=== PATIENT | male | born 1995 | race Caucasian/White ===

== ENCOUNTER 2019-05-04 15:12 | Emergency (ER) | payer MEDICAID ==
[~2019-05-04] VITALS: Ht 185.4 cm; Wt 100.3 kg
--- NOTE | 2019-05-04 16:35 | NUR ---
Discussed pt case with Dr. Vilchis and pt to be evaluated. Pt signed release of information for evaluation from [employer] [facility].
--- NOTE | 2019-05-04 18:30 | NUR ---
Assumed care of pt., Dr. Vilchis here to talk with pt. It is decided that he will be placed on a hold for DTS. Pt. is informed, and notified that he will need to change into green scrubs at this time, he is calm and cooperative, rr even and unlabored. Belongings will be inventoried.
--- NOTE | 2019-05-04 20:30 | NUR ---
Luisana rabago in [facility] - 05/04/19 at 2336 by PIERRE Urine results back and pt. packet faxed to [facility].
--- NOTE | 2019-05-04 20:30 | NUR ---
Nursing Note: Pt. continues to present as calm and cooperative, he reports S/I at this time without a plan. He states that a couple of weeks ago, he did have S/I with a plan to overdose on a sleeping aide, but denies this now. Pt. denies any past suicide attempts. He reports that he is currently in a drug and alcohol program at [facility], however relapsed and smoked Heroin r/t "The struggles I've been going through." He reports that he is able to contract for safety at this time and would like to return to the program at the [facility]. Pt. reports that he does not currently take any medications.
[2019-05-04 21:07] LABS: ALANINE AMINOTRANSFERASE 23 U/L (12-78); ALBUMIN 3.3 G/DL (3.4-5.0); ALBUMIN/GLOBULIN RATIO 1.1 (1.1-1.5); ALKALINE PHOSPHATASE 51 IU/L (46-116); ANION GAP 1 (8-16); ASPARTATE AMINO TRANSFERASE 15 U/L (10-37); BILIRUBIN,TOTAL 0.9 MG/DL (0.1-1.0); BLOOD UREA NITROGEN 18 MG/DL (7-18); BUN/CREATININE RATIO 18.4 (5.4-32.0); CALCIUM 8.4 MG/DL (8.5-10.1); CHLORIDE 103 MMOL/L (99-107); CREATININE 0.98 MG/DL (0.60-1.10); GLUCOSE 104 MG/DL (70-104); POTASSIUM 3.6 MMOL/L (3.5-5.1); SODIUM 138 MMOL/L (135-145); TOTAL CARBON DIOXIDE 33.6 MMOL/L (24-32); TOTAL PROTEIN 6.4 G/DL (6.4-8.2); eGFR > 90 ML/MIN
[2019-05-04 21:16] LABS: ETHANOL < 0.010 GM/DL (0.0-0.010)
[2019-05-04 21:41] LABS: BASOPHILS % (AUTO) 0.6 % (0-1); EOSINOPHILS # (AUTO) 0.1 X10'3 (0-0.9); EOSINOPHILS % (AUTO) 1.3 % (0-6); LYMPHOCYTES # (AUTO) 1.6 X10'3 (1.1-4.8); LYMPHOCYTES % (AUTO) 31.7 % (21-51); MONOCYTES # (AUTO) 0.6 X10'3 (0-0.9); NEUTROPHILS # (AUTO) 2.7 X10'3 (1.8-7.7); NEUTROPHILS % (AUTO) 53.4 % (42-75); PLATELET COUNT 184 X10'3 (140-440); RED CELL DISTRIBUTION WIDTH 11.9 % (11.5-14.5)
[2019-05-04 21:48] LABS: HEMATOCRIT 40.2 % (42.0-52.0); HEMOGLOBIN 13.4 g/dl (14.0-17.9); MEAN CORPUSCULAR HEMOGLOBIN 32.2 PG (27.0-31.0); MEAN CORPUSCULAR HGB CONC 33.4 g/dL (33.0-36.5); MEAN CORPUSCULAR VOLUME 96.3 FL (78-98); MEAN PLATELET VOLUME 9.8 FL (7.4-10.4); RED BLOOD COUNT 4.17 X10'6 (4.70-6.10); WHITE BLOOD COUNT 4.6 X10'3 (4.5-11.0)
[2019-05-04 22:00] LABS: CLARITY,URINE CLEAR (Clear); COLOR,URINE YELLOW (Yellow); GLUCOSE, URINE NEGATIVE (Neg); KETONES,URINE NEGATIVE (Neg); LEUKOCYTE ESTERASE ,URINE NEGATIVE (Neg); NITRITES, URINE NEGATIVE (Neg); OCCULT BLOOD,URINE NEGATIVE (Neg); PROTEIN,URINE NEGATIVE (Neg); UA COLLECTION TYPE CLN CATCH MIDSTREAM
[2019-05-04 22:12] LABS: URINE AMPHETAMINE SCREEN NEGATIVE (Neg); URINE BARBITUATE SCREEN NEGATIVE (Neg); URINE BENZODIAZEPINES SCREEN NEGATIVE (Neg); URINE CANNABINOID SCREEN NEGATIVE (Neg); URINE COCAINE SCREEN NEGATIVE (Neg); URINE METHADONE SCREEN NEGATIVE (Neg); URINE OPIATE SCREEN POSITIVE (Neg); URINE PHENCYCLIDINE SCREEN NEGATIVE (Neg)
--- NOTE | 2019-05-04 22:34 | NUR ---
Pt. continues to sleep at this time, laying on his left side, rr even and unlabored.
[2019-05-04] MEDS ORDERED: NO HOME MEDS (22:36)
--- NOTE | 2019-05-04 23:24 | NUR ---
Avelino Umanzor, [facility], pt. will be evaluated in the morning per [facility] worker already left for the night. Addendum: 05/04/19 at 2337 by PIERRE Urine results back and pt. packet faxed to [facility]
--- NOTE | 2019-05-05 00:30 | NUR ---
Pt. continues to sleep at this time, appears to be resting comfortably, will monitor.
--- NOTE | 2019-05-05 02:29 | NUR ---
Pt. asleep, laying on his rt. side, rr even and unlabored.
--- NOTE | 2019-05-05 04:31 | NUR ---
Pt. continues to sleep at this time, no s/s of distress, will continue to monitor.
--- NOTE | 2019-05-05 06:04 | NUR ---
Pt. awoken to obtain V/S, he is calm and cooperative and then returns back to sleep. Will monitor.
--- NOTE | 2019-05-05 07:00 | NUR ---
Pt lying in bed with eyes closed in no apparent distress.
--- NOTE | 2019-05-05 09:00 | NUR ---
Pt awoke for breakfast and then after sitting up for a while, returned to sleep without any complaints or distress.
--- NOTE | 2019-05-05 11:00 | NUR ---
Pt interviewed by Brittany from [facility] and placed on [id number]. Pt cooperative and currently is sleeping again.
--- NOTE | 2019-05-05 13:00 | NUR ---
Pt resting quietly in bed awaiting lunch. No complaints or requests.
--- NOTE | 2019-05-05 14:42 | NUR ---
report given to Paul Jimenez for further evaluation.
--- NOTE | 2019-05-05 15:00 | NUR ---
Pt sitting on edge of bed c/o anxiety r/t not knowing what is happening. RN sat with pt and allowed him to express his feelings and then brought him a cup of decaf coffee and pt was much more relaxed.
--- NOTE | 2019-05-05 16:15 | NUR ---
Pt accepted at [facility]; ETA for pickup is 1929. Pt notified and he appeared happy to have a place he is headed to.
--- NOTE | 2019-05-05 17:00 | NUR ---
Pt resting quietly in bed. No complaints or requests at this time.
--- NOTE | 2019-05-05 18:30 | NUR ---
Patient is awake in well oriented, W/D, he has good color. Patient denies S/I or hallucinations at this time. Patient does state he has lots of anxiety and depression. Patilent makes direct eye contact, his thought process is linear. Patient was given Ativan 1 mg PO for anxiety. Patient is medication compliant. He did eat his dinner. Patient speaks in a quiet voice, regular rate and rhythm. We are awaiting [facility], patient will be going to [facility] in [place]. Doctor Diaz is the accepting medical social consultant.
[2019-05-05] MEDS ORDERED: LORazepam 1 MG tablet PO ONE (18:50)
[2019-05-05 19:52] VITALS: BP 122/62
== END 2019-05-05 19:57 ==
LOC: ER 15:13
DX: R45.851 Suicidal ideations (principal); R94.6 Abnormal results of thyroid function studies
CPT/HCPCS: 36415; 80053; 80305; 80320; 81003; 84443; 85025; 99285

== ENCOUNTER 2019-09-14 14:04 | Emergency (ER) | payer MEDICAID ==
[~2019-09-14] VITALS: Ht 185.4 cm; Wt 100.0 kg
[~2019-09-14 14:04] MED LIST: NO HOME MEDS
--- NOTE | 2019-09-14 14:34 | NUR ---
called posion control to see what their recomendations are for monitoring pt, if pt becomes unresponsive or shows respiratory destress give another dose of narcan. For every dose of narcan that is given 4-6 hrs observation is reccomended. for substance abuse help this number can be called
--- NOTE | 2019-09-14 15:15 | NUR ---
PT RESTING COMFORTABLY EASY TO ARROUSE
--- NOTE | 2019-09-14 18:37 | NUR ---
PT IS MORE AWAKE AND ALERT NOT SLEEPY
[2019-09-14] MEDS ORDERED: NALO4SPR NS (18:44)
[2019-09-14 18:59] VITALS: BP 122/67
== END 2019-09-14 19:02 | disposition home or self-care (01) ==
LOC: ER 14:04
DX: T40.1X1A Poisoning by heroin, accidental (unintentional), initial encounter (principal); Z79.899 Other long term (current) drug therapy; Y92.89 Other specified places as the place of occurrence of the external cause
CPT/HCPCS: 99285

== ENCOUNTER 2020-06-17 12:33 | Emergency (ER) | payer MEDICAID ==
[~2020-06-17] VITALS: Ht 185.4 cm; Wt 90.9 kg
[~2020-06-17 12:33] MED LIST changes: +NALO4SPR NS
[2020-06-17] MEDS ORDERED: triamcinolone acetonide 40mg/ml inj IM ONE (13:05)
[2020-06-17] MEDS ORDERED: PRED10TA23 PO (13:08)
[2020-06-17] MEDS ORDERED: HYDR28CR14 TOP (13:08)
[2020-06-17 13:33] VITALS: BP 129/68
== END 2020-06-17 13:50 | disposition home or self-care (01) ==
LOC: ER 12:33
DX: L23.7 Allergic contact dermatitis due to plants, except food (principal); F11.90 Opioid use, unspecified, uncomplicated; Z79.899 Other long term (current) drug therapy
CPT/HCPCS: 96372; 99283; J3301